=== PATIENT | female | born 1980 | race Caucasian/White ===

== ENCOUNTER 2020-06-02 18:18 | Emergency (ER) | payer OTHER ==
[2020-06-02 20:25] LABS: CORONAVIRUS 2019 SARS-COV-2 NEGATIVE (NEGATIVE); INFLUENZA A NAA NEGATIVE (NEGATIVE)
[2020-06-02] MEDS ORDERED: VENTOLIN HFA IN18 GM INH ×2 (21:17→21:25)
[2020-06-02] MEDS ORDERED: ZPAK PO ×2 (21:17→21:25)
[2020-06-02] MEDS ORDERED: TESSALON PERLE100 MG PO (21:17)
[2020-06-02] MEDS ORDERED: PROMETHAZINE-P118 ML PO (21:25)
== END 2020-06-02 21:42 | disposition home or self-care (01) ==
LOC: FER 18:18
PROVIDERS: Emergency Medicine Emergency Medical Services
DX: J20.9 Acute bronchitis, unspecified (principal); I10 Essential (primary) hypertension; R51.9 Headache, unspecified; F17.210 Nicotine dependence, cigarettes, uncomplicated; Z88.2 Allergy status to sulfonamides; Z88.1 Allergy status to other antibiotic agents; Z20.822 Contact with and (suspected) exposure to COVID-19
CPT/HCPCS: 71046; 87880; 94640; J1100; J2310; U0002

== ENCOUNTER 2022-02-04 10:15 | Emergency (ER) | payer OTHER ==
[~2022-02-04 10:15] MED LIST: PROMETHAZINE-P118 ML PO; TESSALON PERLE100 MG PO; VENTOLIN HFA IN18 GM INH; ZPAK PO
[2022-02-04 12:50] LABS: BASOPHIL 1.1 % (0-2); EOSINOPHIL 5.2 % (0-5); HCT 44.8 % (37.0-47.0); HGB 14.9 g/dl (12.5-16.0); LYMPHOCYTE 21.9 % (15-48); MCH 30.7 pg (25.0-31.0); MCHC 33.3 g/dL (32.0-36.0); MCV 92.4 fL (78.0-100.0); MONOCYTE 7.2 % (0-12); MPV 9.8 fL (6.0-9.5); NEUTROPHIL 64.2 % (41-80); NRBC 0; PLT 271 K/uL (150-400); RBC 4.85 M/uL (4.20-5.40); RDW 12.2 % (11.5-14.0); WBC 8.1 K/uL (4.0-10.5)
[2022-02-04 12:58] LABS: BILIRUBIN NEGATIVE (NEGATIVE); BLOOD NEGATIVE Ery/uL (NEGATIVE); CLARITY CLEAR (CLEAR); COLOR YELLOW (YELLOW); GLUCOSE (U) NORMAL (NORMAL); LEUKOCYTES NEGATIVE Leu/uL (NEGATIVE); NITRITE NEGATIVE (NEGATIVE); PROTEIN NEGATIVE (NEGATIVE); SPECIFIC GRAVITY 1.015 (1.001-1.030); UROBILINOGEN 0.2 mg/dL (0.2-1.0); pH 6.5 (5.0-9.0)
[2022-02-04 13:13] LABS: ALBUMIN 3.3 g/dL (3.4-5.0); BILIRUBIN - TOTAL 0.4 mg/dL (0.2-1.0); BUN/CREAT RATIO (CALC) 16.9 RATIO; CREATININE 0.83 mg/dL (0.51-0.95); GLOBULIN (CALCULATION) 4.3 g/dL; POTASSIUM 3.5 mmol/L (3.5-5.1); TOTAL PROTEIN 7.6 g/dL (6.4-8.2)
[2022-02-04 13:27] LABS: INFLUENZA A NAA NEGATIVE (NEGATIVE)
[2022-02-04 13:35] LABS: CORONAVIRUS 2019 SARS-COV-2 POSITIVE (NEGATIVE)
== END 2022-02-04 14:29 | disposition home or self-care (01) ==
LOC: FER 10:15
PROVIDERS: Nurse Practitioner Family
DX: U07.1 COVID-19 (principal); I10 Essential (primary) hypertension; Z88.1 Allergy status to other antibiotic agents; Z79.899 Other long term (current) drug therapy; Z28.311 Partially vaccinated for COVID-19
CPT/HCPCS: 36415; 80053; 81003; 85025; J7030; U0002